=== PATIENT | female | born 1955 | race Caucasian/White ===

== ENCOUNTER → 2021-07-27 10:38 | Outpatient (CLI) | payer MEDICARE, SELFPAY ==
--- NOTE | ~2021-07-27 | XR_ITS ---
EXAMINATION: XR shoulder LT min 2V DATE: 07/27/2021 10:59 INDICATION: Left shoulder pain. TECHNIQUE: 4 views of left shoulder were obtained. COMPARISON: None. FINDINGS: Bone alignment is normal. No fracture. There is mild osteoarthritis of glenohumeral joint c haracterized by a tiny marginal osteophyte. Acromioclavicular joint is normal. IMPRESSION: 1. Mild glenohumeral joint osteoarthritis. Reviewed, dictated and finalized at location A.
== END ==
PROVIDERS: PCP Family Medicine; Visit Provider Family Medicine
DX: M19.012 Primary osteoarthritis, left shoulder (principal); E78.5 Hyperlipidemia, unspecified
CPT/HCPCS: 73030

== ENCOUNTER → 2021-10-19 11:46 | Outpatient (CLI) | payer MEDICARE, SELFPAY ==
--- NOTE | ~2021-10-19 | DEXA_ITS ---
Bone Density Report Name: GARRICK HOOVER Age: 66 Sex: Female Ethnicity: White Date of : 1955 Indication: postmenopausal osteoporosis; Referring Provider: Agueda Rico Study: Bone densitometry was performed. Exam Date: October 19, 2021 Accession number: [id number] Bone Density: Region BMD T-score Z-score Classification AP Spine (L1-L4) 0.666 -3.5 -1.5 Osteoporosis Femoral Neck (Left) 0.629 -2.0 -0.3 Osteopenia Total Hip (Left) 0.735 -1.7 -0.4 Osteopenia Femoral Neck (Right) 0.617 -2.1 -0.5 Osteopenia Total Hip (Right) 0.684 -2.1 -0.8 Osteopenia Total Hip Mean 0.710 -1.9 -0.6 Osteopenia World Health Organization criteria for BMD impression classify patients as: Normal (T-score at or above -1.0), Osteopenia (T-score between -1.0 and -2.5), or Osteoporosis (T-score at or below -2.5). 10-year Fracture Risk: FRAX not reported because: Some T-score for Spine Total or Hip Total or Femoral Neck at or below -2.5 Previous Exams: Region Exam Age BMD T-score BMD Change BMD Change Date g/cm2 vs Baseline vs Previous AP Spine(L1-L4) 10/19/2021 66 0.666 -3.5 -0.050* -0.050* 01/29/2019 63 0.717 -3.0 Total Hip(Left) 10/19/2021 66 0.735 -1.7 -0.014 -0.014 01/29/2019 63 0.749 -1.6 Total Hip(Right) 10/19/2021 66 0.684 -2.1 -0.034* -0.034* 01/29/2019 63 0.718 -1.8 *Denotes significance at 95% confidence level, LSC for AP Spine = 0.022 g/cm2, LSC for Total Hip = 0.027 g/cm2 Clinical Information Provided by Patient: Patient maximum height was 62 Menopause Age: 41 No regular weight bearing exercise Drinks caffeinated beverages Onset of menses at age 15 Number of children 0 Impression: The patient has osteoporosis, based on the Total Spine T-score. The BMD for the AP Spine(L1-L4) decreased, changing by -0.050 since the last DXA exam. The BMD for the Total Hip(Right) decreased, changing by -0.034 since the last DXA exam. Discussion: INCREASED RISK OF FRACTURE. BONE DENSITY IS UNDESIRABLY LOW AT ONE OR MORE SKELETAL SITES, CONSISTENT WITH POSTMENOPAUSAL OSTEOPOROSIS. This patient's lowest T-score meets the World Health Organization's (WHO) criteria for osteoporosis at one or more sites (T-score -2.5 or below). In untreated patients, the risk of osteoporotic fracture increases approximately two-fold for each 1.0 SD decrease in T-score. Low bone density is not the only risk factor for fractu
--- NOTE | ~2021-10-19 | MM_ITS ---
EXAMINATION: MM screening [facility] BI w rios HISTORY: Screening mammogram TECHNIQUE: Craniocaudal and mediolateral oblique 3-D tomosynthesis images were obtained and synthetic 2-D images were generated. CAD analysis was submitted and interpreted. COMPARISON: 01/29/2019 bilateral screening mammogram BREAST PARENCHYMAL COMPOSITION: There are scattered areas of fibroglandular density. FINDINGS: Occasional scattered benign calcifications. There is no evidence of suspicious mass, calcif ication, or architectural distortion to suggest malignancy in either breast. There has been no suspic ious interval change. IMPRESSION: 1. No mammographic evidence of malignancy. 2. Recommend routine screening mammography in one year. BI-RADS Category 1: Negative Reviewed, dictated and finalized at location A. ICAL DESIGN ENGINEER
== END ==
PROVIDERS: PCP Family Medicine; Visit Provider Family Medicine
DX: Z12.31 Encounter for screening mammogram for malignant neoplasm of breast (principal); M81.0 Age-related osteoporosis without current pathological fracture; M85.852 Other specified disorders of bone density and structure, left thigh; M85.851 Other specified disorders of bone density and structure, right thigh
CPT/HCPCS: 77063; 77067; 77080

== ENCOUNTER 2024-02-26 17:34 | Emergency (ER) | payer MEDICARE, SELFPAY ==
--- NOTE | ~2024-02-26 | CT_ITS ---
EXAMINATION: CT brain wo con DATE: 02/26/2024 21:31 INDICATION: syncope, head injury . TECHNIQUE: Computed tomography (CT) of the head was performed without intravenous contrast. The mA wa s adjusted according to patient size. Iterative reconstruction technique was employed. The dose-lengt h product was 605.33 mGy-cm. COMPARISON: None. FINDINGS: No acute intracranial hemorrhage or extra-axial fluid collection. No hydrocephalus, mass, or herniation. No acute ischemic infarct. Unremarkable dural venous sinus attenuation. No acute osseous abnormality. Left mastoid effusion, the remaining aerated spaces are clear. Mild atrophy. Atherosclerotic intracranial calcification. IMPRESSION: No acute intracranial process. Reviewed, dictated and finalized at location K.
--- NOTE | ~2024-02-26 | CT_ITS ---
EXAMINATION: CT cervical spine wo con DATE: 02/26/2024 21:31 INDICATION: fall TECHNIQUE: Computed tomography (CT) of the cervical spine was performed without intravenous contrast. Automated exposure control and iterative reconstruction technique were employed. The dose-length pro duct was 168.35 mGy-cm. COMPARISON: None. FINDINGS: Vertebral Body Alignment: Intact. Reversed lordosis centered at C3-4 Trace anterolistheses at C2-3, C 3-4, and C7-T1, likely on a degenerative basis. Craniocervical and atlantoaxial alignment: Mild degenerative change. Alignment intact. Osseous structures/fracture: No evidence of a lytic or blastic process in the visualized spine. No e vidence of acute fracture. Left mastoid fluid. Cervical soft tissues: The paraspinal soft tissues planes are maintained. Degenerative changes: Multilevel severe degenerative disc disease. Multilevel moderate facet arthropa thy. Severe right neural foraminal narrowing at C5-6. No severe central canal narrowing. IMPRESSION: No acute fracture or traumatic malalignment in the cervical spine. Reviewed, dictated and finalized at location K.
[2024-02-26 17:40] VITALS: BP 114/63; PULSE 70; RESP 14; TEMP 36.5; O2SAT 100
--- NOTE | 2024-02-26 17:51 | ECG_ITS ---
SEE SCANNED COPY FOR CONFIRMED REPORT MTDD
[2024-02-26 18:10] LABS: Basophils Absolute Auto 0.1 K/mm3 (0.0-0.1); Basophils Percent Auto 0.5 % (0.2-1.2); Eosinophils Absolute Auto 0.1 K/mm3 (0-0.3); Eosinophils Percent Auto 0.8 % (0-4.4); Hematocrit 36.8 % (37.0-47.0); Hemoglobin 11.7 g/dL (12.0-15.0); Immature Granulocyte Absolute 0.03 K/mm3 (0.00-0.031); Immature Granulocyte Percent A 0.3 % (0-0.5); Lymphocytes Absolute Auto 2.52 K/mm3 (0.9-3.2); Lymphocytes Percent Auto 21.2 % (18.3-44.2); Mean Corpuscular HGB Conc 31.8 g/dl (32-36); Mean Corpuscular Hemoglobin 32.4 pg (26-34); Mean Corpuscular Volume 101.9 fl (80-100); Mean Platelet Volume 10.1 fl (7.4-10.4); Monocytes Absolute Auto 0.6 K/mm3 (0.1-0.6); Monocytes Percent Auto 4.8 % (2.6-8.5); Neutrophils Absolute Auto 8.6 K/mm3 (1.3-6.7); Neutrophils Percent Auto 72.4 % (45.5-73.1); Platelet Count Result 382 k/mm3 (150-375); Red Blood Count 3.61 M/mm3 (4.2-5.4); Red Cell Distribution Width 13.8 % (11.5-14.5); White Blood Count 11.9 K/mm3 (4.5-10.0)
[2024-02-26 18:21] LABS: Alanine Aminotransferase 20 U/L (6-35); Albumin Level 4.7 g/dL (3.5-5.1); Alkaline Phosphatase 58 U/L (38-126); Anion Gap 15 mmol/L (4-12); Aspartate Amino Transferase 28 U/L (14-36); Bilirubin,Total 0.7 mg/dL (0.2-1.3); Blood Urea Nitrogen 36 mg/dL (7-17); Calcium 10.1 mg/dL (8.4-10.2); Carbon Dioxide 20 mmol/L (22-30); Chloride 105 mmol/L (98-107); Estimated CRCL calculation 26 ml/min; Estimated Glomerular Filt Rate 41; Glucose 110 mg/dL (65-110); Sodium 140 mmol/L (137-145)
--- NOTE | 2024-02-26 19:20 | ED.SYNCOPE ---
HPI - Syncope General Chief Complaint: Syncope Stated Complaint: WEAKNESS Time Seen by Provider: 02/26/24 18:57 History of Present Illness HPI narrative: Patient is a 68-year-old female with history of hypertension, diabetes here after syncopal episode. She is currently bowel prepping for colonoscopy that supposed to happen tomorrow. She took her first course of bowel prep around 3:00 p.m. today. She started having massive amounts of diarrhea and some vomiting and her heard her fall to the floor. She notes that she just finished having a bowel movement and then felt light headed and woke the floor to her at her bedside. He notes some when he found her she was slumped over on the floor, unresponsive with her head up against the vanity. She is unsure if she hit her head. She does not take any blood thinners. She currently complains of some cramping abdominal pain but overall this seems to have improved. Her nausea has also improved. Related Data Home Medications Medication Instructions Recorded Confirmed Centrum Silver Women 1 tablet PO DAILY 02/12/24 02/12/24 allopurinol 100 mg tablet 100 mg PO BID 02/12/24 02/12/24 furosemide 40 mg tablet 40 mg PO QAM 02/12/24 02/12/24 glimepiride 1 mg tablet 1 mg PO QAM 02/12/24 02/12/24 ibandronate 150 mg tablet 150 mg PO MONTHLY 02/12/24 02/12/24 levothyroxine 50 mcg tablet 50 mcg PO DAILY 02/12/24 02/12/24 lisinopril 10 mg tablet 10 mg PO 02/12/24 metformin 500 mg tablet,extended 1,500 mg PO QPM 02/12/24 02/12/24 release 24 hr montelukast 10 mg tablet 10 mg PO DAILY PRN other 02/12/24 02/12/24 potassium chloride 20 mEq 20 meq PO DAILY 02/12/24 02/12/24 tablet,extended release rosuvastatin 10 mg tablet 10 mg PO DAILY 02/12/24 02/12/24 Allergies Allergy/AdvReac Type Severity Reaction Status Date / Time No Known Allergies Allergy Verified 02/12/24 13:22 Review of Systems Review of Systems: All systems reviewed & are unremarkable except as noted in HPI and below PMFSH Past Medical History Medical History ) Diabetes mellitus Dizziness Essential (primary) hypertension Gout, unspecified Hyperlipidemia Hypothyroidism Osteoarthritis Osteoporosis URI (upper respiratory infection) Surgical History Surgical History ) H/O tubal ligation Hx of colonoscopy 2018 Family History Family History ) Father Cancer Diabetes mellitus Heart disease Mother Diabetes mellitus Hypertension Depression Heart disease Sibling Cancer Diabetes mellitus Hypertension Depression Social History Social History ) Smoking status: Never smoker Second hand tobacco smoke exposure: No Alcohol intake: never Substance use type: does not use Living arrangements: with family Spiritual care concerns: No Exam Narrative: GENERAL: Well-appearing, well-nourished, and in no acute distress. HEAD: Normocephalic, atraumatic. EYES: PERRLA and EOMI. ENT: Nares clear. Mucous membranes dry. NECK: Supple. No cervical spine tenderness. CHEST: Clear to auscultation. No respiratory distress. HEART: Regular rate and rhythm. Normal peripheral pulses. ABDOMEN: Soft, diffuse mild tenderness. nondistended. EXTREMITIES: Normal range of motion. No edema. No thoracic or lumbar tenderness. SKIN: Warm, dry, no rash. NEURO: No focal deficits. Alert and oriented x3. PSYCH: Normal mood and affect. Course Course Emergency Course: Chart review performed. Patient here after a syncopal episode. She was reportedly prepping for a colonoscopy tomorrow and had a syncopal episode while having a bowel movement. She is unsure if she hit her, no blood thinner use. PCP visit from 02/11/24 reviewed. History of DM, HTN, HLD, Hypothyroidism. Patient seen evaluated,
[2024-02-26] MEDS: LACTATED RINGERS 1,000 ML 999 ML IV CONT (19:43)
[2024-02-26 20:25] LABS: Lipase 297 U/L (23-300)
[2024-02-26 20:33] LABS: Troponin I < 0.012 ng/mL (0.000-0.034)
[2024-02-26 23:22] VITALS: BP 116/54; PULSE 82; RESP 19; O2SAT 97
== END 2024-02-26 23:22 | disposition home or self-care (01) ==
PROVIDERS: Emergency Provider Student in an Organized Health Care Education/Training Program; PCP Family Medicine
DX: R55 Syncope and collapse (principal); N17.9 Acute kidney failure, unspecified; E86.0 Dehydration; I10 Essential (primary) hypertension; E11.9 Type 2 diabetes mellitus without complications; E78.5 Hyperlipidemia, unspecified; E03.9 Hypothyroidism, unspecified; M10.9 Gout, unspecified; M19.90 Unspecified osteoarthritis, unspecified site; Z79.84 Long term (current) use of oral hypoglycemic drugs; R94.31 Abnormal electrocardiogram [ECG] [EKG]
CPT/HCPCS: 36415; 70450; 72125; 80053; 83690; 84484; 85025; 93005; 96360; 99284; J7120

== ENCOUNTER 2024-09-10 11:16 | Outpatient (CLI) | payer MEDICARE, SELFPAY ==
--- NOTE | ~2024-09-10 | MM_ITS ---
EXAMINATION: MM screening [facility] BI w rios HISTORY: Screening TECHNIQUE: Craniocaudal and mediolateral oblique 3-D tomosynthesis images were obtained and synthetic 2-D images were generated. CAD analysis was submitted and interpreted. COMPARISON: Comparison to multiple prior studies sequentially, with oldest reviewed study dated 01/29. BREAST PARENCHYMAL COMPOSITION: Not dense: There are scattered areas of fibroglandular density. FINDINGS: There is no evidence of suspicious mass, calcification, or architectural distortion to sugg est malignancy in either breast. There has been no suspicious interval change. IMPRESSION: 1. No mammographic evidence of malignancy. 2. Recommend routine screening mammography in one year. BI-RADS Category 1: Negative Reviewed, dictated and finalized at location B. YBOARD ARTIST
== END 2024-09-10 11:17 | disposition home or self-care (01) ==
LOC: MICIMG 11:16
PROVIDERS: PCP Nurse Practitioner Family; Visit Provider Nurse Practitioner Family
DX: Z12.31 Encounter for screening mammogram for malignant neoplasm of breast (principal)
CPT/HCPCS: 77063; 77067

== ENCOUNTER 2025-02-23 01:54 | Day surgery (SDC) | payer MEDICARE, SELFPAY ==
[2025-02-13 13:06] VITALS: BMI 22.6
--- OUTSIDE RECORDS SUMMARY | 2025-02-23 01:57 | XMS_ITS | Clinical Summary ---
Author Organization [facility] [address] Address [address] [place] [address] Care Team Providers Care Gyro Mechanic Name Role Phone Elkin Crum MD, Mike Kidd. Primary Care Provider Allergies No known active allergies Active Problems Problem Noted Date Diagnosed Date Hypothyroidism 03/21/2014 Overview (02/07/2017): HYPOTHYROIDISM NOS Type 2 diabetes mellitus 03/21/2014 Overview (02/08/2017): DMII WO CMP UNCNTRLD Adrenal gland hypofunction 03/21/2014 Overview (02/08/2017): ADRENAL HYPOFUNCTION NEC Surgical History Surgery Date Site/Laterality Comments TUBAL LIGATION Bilateral tubal ligation Medical History Medical History Date Comments Disorder of thyroid Thyroid dise ase Diabetes mellitus (HCC) Diabetes Hypertension Hypertension Hyperlipidemia Hyperlipidemia Osteoporosis Osteoporosis Family History Medical History Relation Name Comments Diabetes type II Other Family hist ory of Diabetes -Type II; Relation Name Status Comments Other Social History Tobacco Use Types Packs/Day Years Used Date Smoking Tobacco: Never Assessed Alcohol Use Standard Drinks/Week Comments Yes 0 (1 standard drink = 0.6 oz pur e alcohol) Comments Unknown Sex and Gender Information Value Date Recorded Sex Assigned at Not on file Legal Sex Female 12:20 AM DNA SEQUENCING ASSOCIATE Gender Identity Not on file Sexual Orientation Not on file Obstetrics History Last Filed Vital Signs Vital Sign Reading Time Taken Comments Blood Pressure - - Pulse - - Temperature - - Respiratory Rate - - Oxygen Saturation - - Inhaled Oxygen Concentration - - Weight 53.5 kg (118 lb) 10/22/2018 12:58 PM DNA SEQUENCING ASSOCIATE Height 154.9 cm (5' 1 ) 10/22/2018 12:58 PM DNA SEQUENCING ASSOCIATE Body Mass Index 22.3 10/22/2018 12:58 PM DNA SEQUENCING ASSOCIATE Plan of Treatment Not on file Insurance [employer] NAP Care Teams Gyro Mechanic Relationship Specialty Start Date End Date Mike Granger Jr., MD [address] [place] [id number] PCP - General 03/18/09
--- OUTSIDE RECORDS SUMMARY | 2025-02-23 01:57 | XMS_ITS | Referral Summary ---
Author Organization [facility] [address] Address [address] [place] [address] Care Team Providers Care Voice Over Artist Name Role Phone Elkin Crum MD, Mike Kidd. Primary Care Provider Allergies No known active allergies Active Problems Problem Noted Date Diagnosed Date Hypothyroidism 03/21/2014 Overview (02/07/2017): HYPOTHYROIDISM NOS Type 2 diabetes mellitus 03/21/2014 Overview (02/08/2017): DMII WO CMP UNCNTRLD Adrenal gland hypofunction 03/21/2014 Overview (02/08/2017): ADRENAL HYPOFUNCTION NEC Social History Tobacco Use Types Packs/Day Years Used Date Smoking Tobacco: Never Assessed Alcohol Use Standard Drinks/Week Comments Yes 0 (1 standard drink = 0.6 oz pur e alcohol) Comments Unknown Sex and Gender Information Value Date Recorded Sex Assigned at Not on file Legal Sex Female 12:20 AM ANIMAL HUSBANDMAN Gender Identity Not on file Sexual Orientation Not on file Last Filed Vital Signs Vital Sign Reading Time Taken Comments Blood Pressure - - Pulse - - Temperature - - Respiratory Rate - - Oxygen Saturation - - Inhaled Oxygen Concentration - - Weight 53.5 kg (118 lb) 10/22/2018 12:58 PM ANIMAL HUSBANDMAN Height 154.9 cm (5' 1 ) 10/22/2018 12:58 PM ANIMAL HUSBANDMAN Body Mass Index 22.3 10/22/2018 12:58 PM ANIMAL HUSBANDMAN Plan of Treatment Not on file Insurance [employer] NAP Care Teams Voice Over Artist Relationship Specialty Start Date End Date Mike Granger Jr., MD [address] [place] [id number] PCP - General 03/18/09
--- OUTSIDE RECORDS SUMMARY | 2025-02-23 01:57 | XMS_ITS | Clinical Summary ---
Author Organization [facility] Address [address] [place] [id number] Care Team Providers Care Parking Lot Attendant And Cashier Name Role Phone Unavailable Primary Care Provider Unavailabl e Social History Tobacco Use Types Packs/Day Years Used Date Smoking Tobacco: Never Assessed Comments Unknown Sex and Gender Information Value Date Recorded Sex Assigned at Not on file Legal Sex Female 8:25 PM CDT Gender Identity Not on file Sexual Orientation Not on file Plan of Treatment Health Maintenance Due Date Last Done Comments Colorectal Cancer Screening Colonoscopy (10 Years) 1954 Hepatitis C 1972 DTaP, Tdap and Td Vaccines ( 1 - Tdap) 1973 Mammogram Screening 1994 Pneumococcal Vaccine: 50+ Ye ars (1 of 1 - PCV) 2004 Zoster Vaccines (1 of 2) 2004 Dexa Scan (General) 2019 COVID-19 Vaccine (2023-2 5 season) 2024 RSV Immunization or 60+ Years (1 - 1-dose 75+ series) 2029 Meningococcal B Vaccine Aged Out No l onger eligible based on patient's age to complete this topic Meningococcal Vaccine Aged Out No ayala eric eligible based on patient's age to complete this topic RSV Immunizations Under 20 Months Aged Out No longer eligible based on patient's age to complete this topic
[2025-02-23 11:35] VITALS: BP 154/68; PULSE 71; RESP 22; TEMP 36.4; O2SAT 100
[2025-02-23] MEDS: LACTATED RINGERS 1,000 ML 150 ML IV CONT (11:40)
[2025-02-23 11:49] LABS: Glucose Point of Care 136 mg/dl (65-105)
--- NOTE | 2025-02-23 13:23 | PM.HPGS ---
History of Present Illness History of Present Illness Consent: Risks, benefits, and alternatives have been discussed and questions answered. Patient agrees to proceed with procedure. Chief complaint: Other fecal abnormalities Narrative: Khadijah Ruiz is a 69 year old female with + cologuard, last colonoscopy about 5 years ago Review of Systems Review of Systems: All systems reviewed & are unremarkable except as noted in HPI and below PMFSH Past Medical History Medical History (Updated 02/23/25 @ 13:24 by Robi Hall MD) Positive colorectal cancer screening using Cologuard test Dizziness Hypothyroidism Osteoarthritis Diabetes mellitus Osteoporosis Hyperlipidemia Essential (primary) hypertension Gout, unspecified Surgical History Surgical History ) H/O tubal ligation Hx of colonoscopy 2018 Family History Family History ) Father Cancer Diabetes mellitus Heart disease Mother Diabetes mellitus Hypertension Depression Heart disease Sibling Cancer Diabetes mellitus Hypertension Depression Social History Social History ) Smoking status: Never smoker Second hand tobacco smoke exposure: No Alcohol intake: never Substance use: never Substance use type: does not use Living arrangements: with family Spiritual care concerns: No Meds Home Medications and Allergies Home Medications ?Medication ?Instructions ?Recorded ?Confirmed ?Type Centrum Silver Women 1 tablet PO DAILY 02/12/24 02/23/25 History montelukast 10 mg tablet 10 mg PO DAILY PRN other 02/12/24 02/23/25 History allopurinol 100 mg tablet 100 mg PO BID #180 tabs 08/01/24 02/23/25 Rx ibandronate 150 mg tablet 150 mg PO MONTHLY #3 tabs 08/01/24 02/13/25 Rx pen needle, diabetic 32 gauge x #100 ea 08/15/24 12/23/24 Rx 5/32 (BD Anuradha 2nd Gen Pen Needle) insulin degludec 100 unit/mL (3 See Rx Instructions .Route 09/15/24 02/23/25 Rx mL) subcutaneous pen (Tresiba .COMPLEX #15 mL FlexTouch U-100 insulin) glimepiride 1 mg tablet 1 mg PO QAM #90 tabs 09/30/24 02/23/25 Rx rosuvastatin 10 mg tablet 10 mg PO DAILY #90 tabs 09/30/24 02/23/25 Rx potassium chloride 10 mEq 10 meq PO DAILY #90 tabs 12/08/24 02/23/25 Rx tablet,extended release Farxiga 10 mg tablet 10 mg PO DAILY #90 tabs 12/16/24 02/23/25 Rx (dapagliflozin propanediol) metformin 500 mg tablet,extended 1,000 mg (2 x 500 mg) PO BID #180 12/23/24 02/23/25 Rx release 24 hr tabs levothyroxine 50 mcg tablet 50 mcg PO DAILY #90 tabs 02/05/25 02/23/25 Rx lisinopril 2.5 mg tablet 2.5 mg PO DAILY #90 tabs 02/05/25 02/23/25 Rx Allergies Allergy/AdvReac Type Severity Reaction Status Date / Time No Known Allergies Allergy Verified 02/13/25 12:52 Vital Signs Vital Signs - 24 hr 02/23/25 11:35 Temperature 97.5 F L Pulse Rate 71 Respiratory Rate 22 H Blood Pressure 154/68 H Pulse Oximetry 100 Oxygen Delivery Room Air Exam Const: General: comfortable and no acute distress HENMT: Face/Nose/Sinus: Normal nares present Eyes: General: appearance normal, both eyes and all related structures Neck: Neck: no JVD Resp: Auscultation: clear to auscultation bilaterally Cardio: Rate: regular rate Rhythm: regular rhythm GI: Inspection: non-distended GI Palp: Yes Soft to palpation Skin: General skin exam: normal color Neuro: Speech: normal speech Extrem: General: normal to inspection Psych: Mental Status: mental status grossly normal Assessment and Plan Assessment and plan (1) Positive colorectal cancer screening using Cologuard test: Code(s): R19.5 - Other fecal abnormalities Status: Acute Assessment and Plan: colonoscopy
--- NOTE | 2025-02-23 13:24 | WPDANESEPP ---
Anes - Eval Pre Procedure Procedure: Operation Date: 02/23/25 13:00 Proposed Procedures p Colonoscopy - Robi Hall MD Date/Time: 02/23/25 13:24 Pre Op Diagnosis: Other fecal abnormalities Patient Data Age: 69 Gender: F Height: 1.55 m Weight: 54.4 kg Last Vital Signs Temp 36.4 C L 02/23/25 11:35 Pulse 71 02/23/25 11:35 Resp 22 H 02/23/25 11:35 BP 154/68 H 02/23/25 11:35 Pulse Ox 100 02/23/25 11:35 O2 Del Method Room Air 02/23/25 11:35 Allergies Allergy/AdvReac Type Severity Reaction Status Date / Time No Known Allergies Allergy Verified 02/13/25 12:52 Home Medications ?Medication ?Instructions ?Recorded ?Confirmed ?Type Centrum Silver Women 1 tablet PO DAILY 02/12/24 02/23/25 History montelukast 10 mg tablet 10 mg PO DAILY PRN other 02/12/24 02/23/25 History allopurinol 100 mg tablet 100 mg PO BID #180 tabs 08/01/24 02/23/25 Rx ibandronate 150 mg tablet 150 mg PO MONTHLY #3 tabs 08/01/24 02/13/25 Rx pen needle, diabetic 32 gauge x #100 ea 08/15/24 12/23/24 Rx 5/32 (BD Anuradha 2nd Gen Pen Needle) insulin degludec 100 unit/mL (3 See Rx Instructions .Route 09/15/24 02/23/25 Rx mL) subcutaneous pen (Tresiba .COMPLEX #15 mL FlexTouch U-100 insulin) glimepiride 1 mg tablet 1 mg PO QAM #90 tabs 09/30/24 02/23/25 Rx rosuvastatin 10 mg tablet 10 mg PO DAILY #90 tabs 09/30/24 02/23/25 Rx potassium chloride 10 mEq 10 meq PO DAILY #90 tabs 12/08/24 02/23/25 Rx tablet,extended release Farxiga 10 mg tablet 10 mg PO DAILY #90 tabs 12/16/24 02/23/25 Rx (dapagliflozin propanediol) metformin 500 mg tablet,extended 1,000 mg (2 x 500 mg) PO BID #180 12/23/24 02/23/25 Rx release 24 hr tabs levothyroxine 50 mcg tablet 50 mcg PO DAILY #90 tabs 02/05/25 02/23/25 Rx lisinopril 2.5 mg tablet 2.5 mg PO DAILY #90 tabs 02/05/25 02/23/25 Rx Laboratory Tests 02/23/25 11:47 POC Capillary Glucose 136 H mg/dl (65-105) Patient hx anesthesia problems: none Family hx anesthesia problems: none Results Review: All pre-operative results and documents have been reviewed as part of the pre-operative evaluation. [facility] Past Medical History Medical History (Updated 02/23/25 @ 13:24 by Robi Hall MD) Positive colorectal cancer screening using Cologuard test Dizziness Hypothyroidism Osteoarthritis Diabetes mellitus Osteoporosis Hyperlipidemia Essential (primary) hypertension Gout, unspecified Surgical History Surgical History ) H/O tubal ligation Hx of colonoscopy 2018 Family History Family History ) Father Cancer Diabetes mellitus Heart disease Mother Diabetes mellitus Hypertension Depression Heart disease Sibling Cancer Diabetes mellitus Hypertension Depression Social History Social History ) Smoking status: Never smoker Second hand tobacco smoke exposure: No Alcohol intake: never Substance use: never Substance use type: does not use Living arrangements: with family Spiritual care concerns: No Exam Day of Procedure 02/23/25 13:24 Patient weight: normal Heart: regular rate and rhythm Lungs: clear to auscultation and normal air movement Airway: Mallampati scale class III Neurological: alert and oriented
[2025-02-23 14:07] VITALS: BP 92/40; PULSE 64; RESP 17; O2SAT 100
[2025-02-23 14:17] VITALS: BP 92/51; PULSE 65; RESP 14; O2SAT 99
[2025-02-23 14:27] VITALS: BP 94/67; PULSE 64; RESP 20; O2SAT 99
[2025-02-23 14:39] LABS: Glucose Point of Care 101 mg/dl (65-105)
== END 2025-02-23 14:42 | disposition home or self-care (01) ==
PROVIDERS: PCP Nurse Practitioner Family; Referring Provider Nurse Practitioner Family; Visit Provider Internal Medicine Gastroenterology
PROC: 0DJD8ZZ Inspection of Lower Intestinal Tract, Via Natural or Artificial Opening Endoscopic (ICD-10-PCS; CPT 45378; principal; 2025-02-23 13:00)
DX: R19.5 Other fecal abnormalities (principal); K63.5 Polyp of colon; D17.5 Benign lipomatous neoplasm of intra-abdominal organs; K57.30 Diverticulosis of large intestine without perforation or abscess without bleeding; K64.8 Other hemorrhoids; E11.9 Type 2 diabetes mellitus without complications; I10 Essential (primary) hypertension; E78.5 Hyperlipidemia, unspecified; Z79.4 Long term (current) use of insulin; Z79.84 Long term (current) use of oral hypoglycemic drugs
CPT/HCPCS: 45381; 45385; 82948; 88305; J2003; J2704; J7120

== ENCOUNTER 2025-08-18 09:47 | Outpatient (CLI) | payer MEDICARE, SELFPAY ==
--- NOTE | ~2025-08-18 | DEXA_ITS ---
Bone Density Report Name: GARRICK HOOVER Age: 70 Sex: Female Ethnicity: White Date of : 1955 Indication: postmenopausal; screening for osteoporosis; height loss; Referring Provider: JASON MCALLISTER Study: Bone densitometry was performed. Exam Date: August 18, 2025 Accession number: [id number] Bone Density: Region BMD T-score Z-score Classification AP Spine(L1-L4) 0.699 -3.2 -1.0 Osteoporosis Femoral Neck (Left) 0.600 -2.2 -0.4 Osteopenia Total Hip (Left) 0.746 -1.6 -0.1 Osteopenia Femoral Neck (Right) 0.614 -2.1 -0.3 Osteopenia Total Hip (Right) 0.733 -1.7 -0.2 Osteopenia Total Hip Mean 0.739 -1.7 -0.2 Osteopenia World Health Organization criteria for BMD impression classify patients as: Normal (T-score at or above -1.0), Osteopenia (T-score between -1.0 and -2.5), or Osteoporosis (T-score at or below -2.5). 10-year Fracture Risk: FRAX not reported because: Some T-score for Spine Total or Hip Total or Femoral Neck at or below -2.5 Treated for osteoporosis Clinical Information Provided by Patient: Is being treated for osteoporosis Has used the following medications: Boniva (i.e. ibandronate), Vitamin D, Calcium Patient maximum height was 62 Menopause Age: 45 No regular weight bearing exercise Drinks caffeinated beverages Onset of menses at age 15 Number of children 0 Impression: The patient has osteoporosis, based on the Total Spine T-score. Discussion: It is important to ask patients whether they are taking their medications and to encourage continued and appropriate compliance with their osteoporosis therapies to reduce fracture risk. It is also important to review their risk factors and encourage appropriate calcium and vitamin D intakes, exercise, fall prevention and other lifestyle measures. Follow-Up: Consider a repeat BMD and Vertebral Fracture Assessment (VFA) exam in 2 years or sooner if medically necessary, to reassess this patient's status. Reported by: ALYSSA on 08/18/2025 10:28:00 AM. Reviewed, dictated and finalized at location A.
--- OUTSIDE RECORDS SUMMARY | 2025-08-18 11:15 | XMS_ITS | Clinical Summary ---
Author Organization [facility] [address] Address [address] [place] [address] Care Team Providers Care Microsoft Dynamics Consultant Name Role Phone Elkin Crum MD, Mike [...] of thyroid Thyroid dise ase Diabetes mellitus Diabetes Hypertension Hypertension Hyperlipidemia Hyperlipidemia Osteoporosis Osteoporosis [...] on file Legal Sex Female 12:20 AM US MARKETING DIRECTOR Gender Identity Not on file Sexual Orientation Not on file Obstetrics History Last Filed Vital Signs Vital Sign Reading Time Taken Comments Blood Pressure - - Pulse - - Temperature - - Respiratory Rate - - Oxygen Saturation - - Inhaled Oxygen Concentration - - Weight 53.5 kg (118 lb) 10/22/2018 12:58 PM US MARKETING DIRECTOR Height 154.9 cm (5' 1) 10/22/2018 12:58 PM US MARKETING DIRECTOR Body Mass Index 22.3 10/22/2018 12:58 PM US MARKETING DIRECTOR Plan of Treatment Not on file Insurance [employer] NAP Care Teams Microsoft Dynamics Consultant Relationship Specialty Start Date End Date Mike Granger Jr., MD [address] [place] [id number] PCP - General 03/18/09
== END 2025-08-18 09:48 | disposition home or self-care (01) ==
LOC: ANHFOHIMG 09:51
PROVIDERS: PCP Nurse Practitioner Family; Visit Provider Nurse Practitioner Family
DX: N95.8 Other specified menopausal and perimenopausal disorders (principal); M81.0 Age-related osteoporosis without current pathological fracture; M85.852 Other specified disorders of bone density and structure, left thigh; M85.851 Other specified disorders of bone density and structure, right thigh
CPT/HCPCS: 77080